=== PATIENT | male | born 1975 | race Caucasian/White ===

== ENCOUNTER → 2016-11-20 | Outpatient (CLI) | payer OTHER ==
[~2016-11-20] MED LIST: AMOXICILLIN500 MG PO; ASPIR LOW81 MG PO; DILTIAZEM HCL60 MG PO; ELIQUIS5 M1 PO; FAMOTIDINE20 MG PO; LISINOPRIL10 MG PO; LOPRESSOR25 MG PO; METFORMIN HCL500 MG PO; PROPAFENONE HC225 MG PO; TRICOR145 MG PO; ZOFRAN ODT4 MG SL
[2016-11-20 10:25] LABS: INTERNATIONAL NORM RATIO 1.4 (2.0-3.5); PROTHROMBIN TIME 15.6 SECONDS (9.0-12.4)
== END | disposition home or self-care (01) ==
LOC: LAB 09:34
PROVIDERS: Family Medicine
DX: I48.91 Unspecified atrial fibrillation (principal); Z79.899 Other long term (current) drug therapy

== ENCOUNTER → 2016-11-23 | Outpatient (CLI) | payer OTHER ==
[2016-11-23 19:26] LABS: INTERNATIONAL NORM RATIO 2.2 (2.0-3.5); PROTHROMBIN TIME 24.9 SECONDS (9.0-12.4)
== END | disposition home or self-care (01) ==
LOC: LAB 18:16
PROVIDERS: Family Medicine
DX: I48.91 Unspecified atrial fibrillation (principal)

== ENCOUNTER → 2017-01-09 | Outpatient (CLI) | payer OTHER ==
[2017-01-09 08:51] LABS: HEMATOCRIT 44.8 % (42.0-52.0); HEMOGLOBIN 15.2 g/dl (14.0-18.0); MEAN CELL VOLUME 85.8 fl (80.0-94.0); MEAN CORPUSCULAR HGB 29.1 pg (27.0-31.0); MEAN CORPUSCULAR HGB CONC 33.9 g/dl (33.0-37.0); MEAN PLATELET VOLUME 9.4 fl (9.6-12.3); RED BLOOD COUNT 5.22 10*6/uL (4.50-5.90); RED CELL DISTRI WIDTH 12.6 % (0-14.5); WHITE BLOOD COUNT 5.6 10*3/uL (4.8-10.8)
[2017-01-09 09:18] LABS: ALBUMIN 3.7 gm/dl (3.1-4.5); BILIRUBIN, TOTAL 0.3 mg/dl (0.2-1.0); BUN 16 mg/dl (7-24); CARBON DIOXIDE 28 mmol/L (21-32); CHLORIDE 105 mmol/L (98-107); EST GLOM FILT AFRICAN AMERICAN > 60 ml/min; GLUCOSE 95 mg/dL (65-99); POTASSIUM 3.6 mmol/L (3.5-5.1); SGOT/AST 20 IU/L (3-35); SGPT/ALT 30 U/L (12-78); SODIUM 140 mmol/L (136-145)
[2017-01-09 09:19] LABS: ALKALINE PHOSPHATASE 97 U/L (45-117)
[2017-01-09 09:37] LABS: INTERNATIONAL NORM RATIO 1.9 (2.0-3.5); PROTHROMBIN TIME 21.3 SECONDS (9.0-12.4)
== END | disposition home or self-care (01) ==
LOC: LAB 07:49
PROVIDERS: Family Medicine
DX: I48.91 Unspecified atrial fibrillation (principal); E55.9 Vitamin D deficiency, unspecified; F41.1 Generalized anxiety disorder; E74.00 Glycogen storage disease, unspecified

== ENCOUNTER 2018-07-06 22:03 | Emergency (ER) | payer OTHER ==
[~2018-07-06] VITALS: Ht 167.6 cm; Wt 82.6 kg
[2018-07-06 22:35] LABS: BILIRUBIN NEGATIVE (NEGATIVE); BLOOD 3+ (NEGATIVE); CLARITY SL CLOUDY (CLEAR); COLOR RED (YELLOW); GLUCOSE NEGATIVE (NEGATIVE); KETONE NEGATIVE (NEGATIVE); LEUKO ESTERASE TRACE (NEGATIVE); NITRITE NEGATIVE (NEGATIVE); PH 6.5 (5.0-9.0); SPECIFIC GRAVITY <= 1.005 (1.005-1.030); UROBILINOGEN 0.2 E.U./dl (0.2-1.0)
[2018-07-06 22:38] LABS: BASO # 0.1 10*3/uL (0.0-0.1); BASO % 1.1 % (0.0-1.0); EOS # 0.1 10*3/uL (0.0-0.4); EOS % 1.4 % (1.0-4.0); HEMATOCRIT 44.4 % (42.0-52.0); HEMOGLOBIN 15.6 g/dl (14.0-18.0); LYMPH # 2.5 10*3/uL (1.3-4.4); LYMPH % 36.4 % (27.0-41.0); MEAN CELL VOLUME 87.6 fl (80.0-94.0); MEAN CORPUSCULAR HGB 30.8 pg (27.0-31.0); MEAN CORPUSCULAR HGB CONC 35.1 g/dl (33.0-37.0); MEAN PLATELET VOLUME 8.8 fl (9.6-12.3); MONO # 0.6 10*3/uL (0.1-1.0); MONO % 8.9 % (3.0-9.0); NEUT # 3.6 10*3/uL (2.3-7.9); NEUT % 51.9 % (47.0-73.0); PLATELET COUNT AUTOMATED 288 10*3/uL (130-400); RED BLOOD COUNT 5.07 10*6/uL (4.50-5.90)
[2018-07-06 22:42] LABS: RBC TNTC rbc/hpf (0-2)
[2018-07-06 22:47] LABS: ALBUMIN 3.8 gm/dl (3.1-4.5); ALKALINE PHOSPHATASE 107 U/L (45-117); BUN 11 mg/dl (7-24); CHLORIDE 101 mmol/L (98-107); CREATININE 0.98 mg/dL (0.70-1.30); POTASSIUM 3.5 mmol/L (3.5-5.1); SGOT/AST 21 IU/L (3-35); SGPT/ALT 24 U/L (12-78); SODIUM 135 mmol/L (136-145); TOTAL PROTEIN 8.4 gm/dL (6.4-8.2)
== END 2018-07-06 23:50 | disposition home or self-care (01) ==
LOC: ED 22:03
PROVIDERS: Student in an Organized Health Care Education/Training Program
DX: R31.9 Hematuria, unspecified (principal); R10.9 Unspecified abdominal pain; I48.91 Unspecified atrial fibrillation; Z87.442 Personal history of urinary calculi; Z79.82 Long term (current) use of aspirin; Z79.899 Other long term (current) drug therapy

== ENCOUNTER 2019-03-13 18:47 | Inpatient (IN) | payer SELFPAY ==
[~2019-03-13] VITALS: Ht 167.6 cm; Wt 77.3 kg
[2019-03-13] VITALS (7 sets, daily range): BP systolic 122–143; BP diastolic 74–90
--- NOTE | ~2019-03-13 | EKG ---
[place], [place] ELECTROCARDIOGRAM REPORT NAME: SANA CHACON UNIT #: [id number] ROOM: 521 DOCTOR: TITO DRAFT REPORT BIRTHDATE: [birth year] [facility] Test Date: 2019-03-15 Test Time: 06:10:36 Pat Name: SANA CHACON Department: Room: 521 1 Gender: M Peanut Shaker: Stephie Plunkett : 1975 Requested By: ABRAM AVILES Order Number: [id number] Reading MD: Abram Aviles MD Measurements Intervals [place] Rate: 67 P: 36 ID: 166 QRS: 5 QRSD: 84 T: 8 QT: 382 QTc: 404 Interpretive Statements Sinus arrhythmia Baseline wander in lead(s) II,III,aVF,V4 No previous ECG available for comparison Electronically Signed On 03-15-2019 5:59:56 PDT by Abram Aviles MD CM:EKGRPT:ELECTROCARDIOGRAM REPORT [id number] ABRAM AVILES MD EPIPHANY DRAFT REPORT ABRAM AVILES MD
--- NOTE | ~2019-03-13 | EKG ---
[place], [place] ELECTROCARDIOGRAM REPORT NAME: SANA CHACON UNIT #: [id number] ROOM: 521 DOCTOR: TITO DRAFT REPORT BIRTHDATE: [birth year] [facility] Test Date: 2019-03-14 Test Time: 01:15:57 Pat Name: SANA CHACON Department: Room: 521 Gender: M Grab Jack Man: Bk Rapp : 1975 Requested By: JI HUERTA Order Number: [id number] Reading MD: Abram Barfield MD Measurements Intervals [place] Rate: 103 P: [place]: QRS: 2 QRSD: 78 T: 10 QT: 334 QTc: 437 Interpretive Statements Atrial fibrillation Electronically Signed On 03-15-2019 5:56:57 PDT by Abram Barfield MD CM:EKGRPT:ELECTROCARDIOGRAM REPORT [id number] JI MATHUR DRAFT REPORT JI HUERTA DO
--- NOTE | ~2019-03-13 | EKG ---
[place], [place] ELECTROCARDIOGRAM REPORT NAME: SANA CHACON UNIT #: [id number] ROOM: 521 DOCTOR: TITO DRAFT REPORT BIRTHDATE: [birth year] [facility] Test Date: 2019-03-13 Test Time: 19:40:04 Pat Name: SANA CHACON Department: Room: 521 Gender: M Development System Efficiency Manager: Nury Freedman : 1975 Requested By: JI HUERTA Order Number: [id number] Reading MD: Abram Barfield MD Measurements Intervals [place] Rate: 136 P: [place]: QRS: 9 QRSD: 81 T: 4 QT: 288 QTc: 434 Interpretive Statements Atrial fibrillation Rapid ventricular complexes Electronically Signed On 03-15-2019 5:53:05 PDT by Abram Barfield MD CM:EKGRPT:ELECTROCARDIOGRAM REPORT [id number] JI MATHUR DRAFT REPORT JI HUERTA DO
--- NOTE | ~2019-03-13 | EKG ---
[place], [place] ELECTROCARDIOGRAM REPORT NAME: SANA CHACON UNIT #: [id number] ROOM: 521 DOCTOR: TITO DRAFT REPORT BIRTHDATE: [birth year] [facility] Test Date: 2019-03-13 Test Time: 22:46:33 Pat Name: SANA CHACON Department: Room: 521 Gender: M Shutdown Coordinator: Deidra Saldana : 1975 Requested By: JI HUERTA Order Number: [id number] Reading MD: Abram Barfield MD Measurements Intervals [place] Rate: 123 P: [place]: QRS: 11 QRSD: 76 T: 7 QT: 306 QTc: 438 Interpretive Statements Atrial fibrillation Electronically Signed On 03-15-2019 5:53:46 PDT by Abram Barfield MD CM:EKGRPT:ELECTROCARDIOGRAM REPORT [id number] JI MATHUR DRAFT REPORT JI HURETA DO
--- NOTE | ~2019-03-13 | WRIGHTHP ---
[place], [place] PATIENT HISTORY AND PHYSICAL EXAM NAME: SANA CHACON [facility] #: [id number] UNIT #: [id number] ROOM: 521 DOCTOR: WHITNEY ALDANA MD BIRTHDATE: [birth year] DOS: 03/13/2019 HISTORY OF PRESENT ILLNESS: The patient is a 43-year-old gentleman with a past medical history of: 1. Paroxysmal atrial fibrillation with rapid ventricular response. 2. Benign essential hypertension. The patient presented to the Emergency Department at [facility] with palpitations going on for about 20 minutes and he also felt short of breath. The patient was found to be in atrial fibrillation with rapid ventricular response with a heart rate of 116 beats per minute recorded, going up to 138 beats per minute. The patient was started on IV Cardizem and admitted to a monitored bed and he is starting to feel better. Cardiology has been consulted. No chest pain. No other GI or urinary symptoms. REVIEW OF SYSTEMS: CARDIOVASCULAR SYSTEMS: Palpitations. RESPIRATORY: Increasing shortness of breath. GASTROINTESTINAL: No nausea, vomiting, diarrhea, or constipation. ALLERGIES: No known drug allergies. HOME MEDICATIONS: Cardizem, metoprolol, Coumadin, and lorazepam. PHYSICAL EXAMINATION: GENERAL: Alert and oriented x 3, in no visible distress. HEENT AND NECK: Extraocular movements are intact. Sclerae are anicteric. Oral mucosa is moist and clean. No obvious facial weakness. Neck is supple without any lymphadenopathy. No thyromegaly. No JVD. No carotid arterial bruits. LUNGS: Clear to auscultation. No wheezing. No rhonchi. CARDIOVASCULAR SYSTEM: Heart rate is regular in rate and rhythm. S1 and S2 normally audible. No significant murmur or any other abnormal cardiac sounds. ABDOMEN: Soft, nontender. No obvious organomegaly. Bowel sounds are present. No obvious herniation. EXTREMITIES: Without significant cyanosis or edema. Warm to touch. CENTRAL NERVOUS SYSTEM: Alert and oriented x 3. Cranial nerves II-XII are intact. Speech is normal. The patient is able to move all extremities. Normal muscle strength. Deep tendon reflexes are equal on both sides. Plantars were downgoing. LABORATORY DATA: Cardiac enzymes negative. Chest x-ray showing no acute abnormality. Potassium level of 3.4. IMPRESSION: 1. The patient with acute atrial fibrillation with a history of paroxysmal atrial fibrillation with rapid ventricular response up to 140 beats per minute and shortness of breath indicating acute congestive heart failure related to his tachycardia, is feeling much better now with IV Cardizem and has reverted back [place], [place] PATIENT HISTORY AND PHYSICAL EXAM NAME: SANA CHACON UNIT #: [id number] ROOM: 521 DOCTOR: WHITNEY ALDANA MD BIRTHDATE: [birth year] to normal sinus rhythm. Cardiology has been consulted. The patient already anticoagulated with Coumadin and INR was therapeutic at 2. Coumadin has been continued. 2. Generalized anxiety disorder, treated with lorazepam as needed. 3. Benign essential hypertension, treated and controlled. Blood pressures are staying normal on diltiazem and metoprolol that he was taking at home. WHITNEY ALDANA MD CM:HISPHYS:PATIENT HISTORY AND PHYSICAL EXAMINATION [id number] WHITNEY ALDANA MD 03/14/19 1112 interface
--- NOTE | ~2019-03-13 | DS ---
[place], [place] DISCHARGE SUMMARY NAME: SANA CHACON [facility] #: [id number] UNIT #: [id number] ROOM: 521 DOCTOR: WHITNEY ALDANA MD BIRTHDATE: [birth year] DOS: 03/15/2019 DISCHARGE DIAGNOSES: 1. Paroxysmal atrial fibrillation with rapid ventricular response. 2. Benign essential hypertension. HOSPITAL COURSE: The patient presented to the Emergency Department with palpitations for 20 minutes and he was found to be in rapid atrial fibrillation with heart rate going up to 140 beats per minute. The patient was started on IV Cardizem and admitted and he converted back to normal sinus rhythm. The patient back on oral Cardizem and metoprolol and remains in sinus rhythm and he will follow up with his lasting machine operator and Dr. Mikey Land as an outpatient. He is asymptomatic. Generalized anxiety disorder, treated and controlled with lorazepam as needed. Benign essential hypertension. Blood pressure is staying normal with treatment. LABORATORY DATA: Cardiac enzymes are negative. Chest x-ray without any acute abnormality. Cardiology consult was obtained with Dr. Barfield who evaluated the patient. DISCHARGE MANAGEMENT: Coumadin 0.5 mg on Saturdays and 1 mg on other days daily, diltiazem CD 120 mg a day, Pepcid 20 mg a day. Follow up with PCP and with Cardiology. WHITNEY ALDANA MD CM:DISCHARG 2102 WHITNEY ALDANA MD 03/16/19 0116 interface
[2019-03-13 19:31] LABS: BASO # 0.1 10*3/uL (0.0-0.1); BASO % 0.8 % (0.0-1.0); EOS # 0.2 10*3/uL (0.0-0.4); EOS % 2.3 % (1.0-4.0); HEMATOCRIT 47.3 % (42.0-52.0); HEMOGLOBIN 15.8 g/dl (14.0-18.0); LYMPH # 1.1 10*3/uL (1.3-4.4); LYMPH % 14.3 % (27.0-41.0); MEAN CORPUSCULAR HGB 30.4 pg (27.0-31.0); MEAN CORPUSCULAR HGB CONC 33.4 g/dl (33.0-37.0); MEAN PLATELET VOLUME 9.1 fl (9.6-12.3); MONO # 0.7 10*3/uL (0.1-1.0); MONO % 8.7 % (3.0-9.0); NEUT # 5.8 10*3/uL (2.3-7.9); NEUT % 73.6 % (47.0-73.0); PLATELET COUNT AUTOMATED 282 10*3/uL (130-400); RED CELL DISTRI WIDTH 11.6 % (0-14.5); WHITE BLOOD COUNT 7.9 10*3/uL (4.8-10.8)
[2019-03-13 19:47] LABS: ALBUMIN 3.9 gm/dl (3.1-4.5); ALKALINE PHOSPHATASE 107 U/L (45-117); BUN 19 mg/dl (7-24); CHLORIDE 107 mmol/L (98-107); POTASSIUM 3.4 mmol/L (3.5-5.1); SGOT/AST 16 IU/L (3-35); SGPT/ALT 33 U/L (12-78); SODIUM 141 mmol/L (136-145); TOTAL PROTEIN 8.3 gm/dL (6.4-8.2)
[2019-03-13 19:48] LABS: ACT PARTIAL THROMBO TIME 33.9 SECONDS (20.0-32.1)
[2019-03-13 20:01] LABS: TROPONIN I < 0.015 ng/ml (<0.045)
--- NOTE | 2019-03-13 22:15 | NUR ---
A 43, admitted to 5E, under the services of Dr. JOVAN ARGUETA,WHITNEY Fong with a diagnosis of ATRIAL FIBRILLATION WITH RVR. Chief complaint is TACHYCARDIA/PALPITATIONS. Patient arrived via stretcher from ER. Monitor applied. Initial assessment completed. Vital signs taken and recorded. DR. JOVAN ARGUETA,WHITNEY Fong notified of admission to the unit. Orders received. See assessment for past medical history, medications and allergies. Patient and/or family oriented to unit. [facility] visitation policy reviewed. Clothing/patient valuable form completed. MARKEL TOBIN
[2019-03-13] MEDS ORDERED: COUMADIN1 M1 PO ×2 (22:24→22:25)
[2019-03-13] MEDS ORDERED: CARDIZEM CD120 M2 PO (22:26)
--- NOTE | 2019-03-13 22:55 | NUR ---
PT'S CARDIZEM GTT INCREASED TO 10 MG/HR PER TITRATE ORDER HR SITTING IN 110S-130S PER CM, AND HIGH 150S. WILL MONITOR. Q2H BP CHECKS TO BE INITIATED.
--- NOTE | 2019-03-13 22:58 | NUR ---
ATTEMPTED TO CALL FOR ADMISSION ORDERS. NO RESPONSE. WILL ATTEMPT AGAIN.
--- NOTE | 2019-03-13 23:08 | NUR ---
ORDERS RECEIVED FROM . DISCUSSED CURRENT VITALS, CARDIZEM GTT TITRATED TO 10 MG/HR, HOME MEDICATIONS, PERTINENT LAB RESULTS. INSTRUCTED TO ORDER HOME WARFARIN & FAMOTIDINE. HOLD HOME METOPROLOL, LISINOPRIL, & DILTIAZEM. ALSO INSTRUCTED TO CONSULT FOR AFIB W/RVR & TO GIVE PT A REGULAR DIET. NO AM LABS NEEDED PER .
--- NOTE | 2019-03-13 23:16 | NUR ---
'S ANSWERING SERVICE CALLED AT THIS TIME REGARDING CONSULT. CONSULT INFORMATION/CALL BACK NUMBER LEFT WITH SHUTTLE VAN DRIVER.
[2019-03-14] VITALS (9 sets, daily range): BP systolic 102–134; BP diastolic 68–78
--- NOTE | 2019-03-14 03:17 | NUR ---
HR SITTING 70S-80S & HOLDING. CURRENTLY IN A FLUTTER. CARIZEM GTT TITRATED DOWN FROM 10 ML/HR TO 5 ML/HR AT THIS TIME. WILL MONITOR. CALL LIGHT IN REACH.
--- NOTE | 2019-03-14 05:33 | NUR ---
PT'S HR 70S. STILL IN AFIB/AFLUTTER. CARDIZEM BAG PULLED RETURNED TO PYXIS, UNMIXED.
--- NOTE | 2019-03-14 06:24 | NUR ---
'S ANSWERING SERVICE CALLED AT THIS TIME IN ORDER TO CLARIFY WHETHER CARDIZEM GTT SHOULD REMAIN RUNNING OR BE D/Gilbert. MESSAGE/CALL BACK NUMBER LEFT WITH TREASURY SPECIALIST. CALL BACK REQUESTED.
--- NOTE | 2019-03-14 06:31 | NUR ---
CALLED BACK AT THIS TIME. DISCUSSED CONSULT, ADMITTING DX, MEDICATIONS/CARDIZEM GTT, AND CURRENT VITALS. INSTRUCTED TO DECREASE GTT TO 2.5 MG/HR AND HE WILL SEE PT IN THE AM.
--- NOTE | 2019-03-14 06:33 | NUR ---
CARDIZEM GTT DECREASED TO 2.5 MG/HR PER 'S INSTRUCTION.
--- NOTE | 2019-03-14 12:27 | NUR ---
Film Rental Clerk in to talk to patient. Patient states lives at HOME with . There are 4 steps in the home. Physician: TRISTIN Pharmacy: [facility] Home health services: NONE Patient's level of ADLs: INDEPENDENT Patient has working utilities: YES DME: NONE Follow-up physician's appointment after d/c: WILL BE MADE BY HOSPITALIST NURSE DIRECTOR ON DISCHARGE Does patient want to access PORTAL?: NO Discharge plan PT LIVES AT HOME WITH HIS AND IS INDEPENDENT IN CARE. PT STATES HE WORKS AND IS INDEPENDENT IN HIS CARE. DENIES ANY NEEDS ON DISCHARGE. WILL CONTINUE TO FOLLOW. STATES HE WILL HAVE A RIDE HOME.. SRIDHAR PAGAN
--- NOTE | 2019-03-14 19:41 | NUR ---
CALLED PHARMACY TO CHANGE DIRECTION ON COUMADIN SO THAT PATIENT RECEIVES 1 MG WEDNESDAY-WEDNESDAY AND 0.5 MG ON WEDNESDAY.
[2019-03-15] VITALS: BP 130/70
--- NOTE | 2019-03-15 01:27 | NUR ---
PT ASLEEP IN BED. DENIES ANY NEEDS AT THIS TIME.
[2019-03-15 07:54] VITALS: BP 122/60
--- NOTE | 2019-03-15 08:45 | NUR ---
PT AWAKE, ALERT, & ORIENTED. DENIES ANY COMPLAINTS AT THIS TIME. HR STILL IN NSR 70'S AT THIS TIME. PT DENIES ANY CHEST PAIN OR PALPITATIONS. CALL LIGHT IS WITHIN REACH.
[2019-03-15 12:00] VITALS: BP 126/70
--- NOTE | 2019-03-15 12:37 | NUR ---
PT PLANS TO GO HOME WHEN MEDICALLY STABLE. STATE HE HAS NO NEEDS. WILL CONTINUE TO FOLLOW.
[2019-03-15 16:00] VITALS: BP 118/78
[2019-03-15 20:00] VITALS: BP 141/88
--- NOTE | 2019-03-15 20:15 | NUR ---
RESTING IN BED WIHTOUT C/O'S. ALERT AND PLEASANT. NO DISTRESS NOTED. WAITING ON DR. ALDANA TO ROUND. PT WANTING TO BE DISCHARGED. ONE HEP LOCK REMOVED. JAIME HEP LCK INTACT.
--- NOTE | 2019-03-15 20:47 | NUR ---
DR. ALDANA HERE TO SEE PT. PT TO BE DISCHARGED.
--- NOTE | 2019-03-15 21:00 | NUR ---
2ND HEP LOCK AND MONITOR REMOVED. DISCHARGE INSTRUCTIONS GIVEN AND PROPER PAPERS SIGNED. PT DISCHARGED TO HOME, VIA WC, WITH BELONGINGS. CONDITION STABLE.
== END 2019-03-15 21:00 | disposition home or self-care (01) | DRG 310 ==
LOC: ED 18:47 → 5E 21:21 → EDHOLD 21:21 → 5E 21:58
PROVIDERS: Student in an Organized Health Care Education/Training Program; ADMIT Internal Medicine
DX: I48.0 Paroxysmal atrial fibrillation (principal); I10 Essential (primary) hypertension; F41.1 Generalized anxiety disorder; F17.220 Nicotine dependence, chewing tobacco, uncomplicated; I35.1 Nonrheumatic aortic (valve) insufficiency; Z79.01 Long term (current) use of anticoagulants; Z79.899 Other long term (current) drug therapy; Z79.82 Long term (current) use of aspirin; Z82.49 Family history of ischemic heart disease and other diseases of the circulatory system; Z82.5 Family history of asthma and other chronic lower respiratory diseases; Z84.1 Family history of disorders of kidney and ureter

== ENCOUNTER 2019-12-08 08:02 | Emergency (ER) | payer SELFPAY ==
[~2019-12-08] VITALS: Ht 167.6 cm; Wt 82.6 kg
[~2019-12-08 08:02] MED LIST changes: +CARDIZEM CD120 M2 PO; +COUMADIN1 M1 PO
[2019-12-08 08:27] LABS: BASO # 0.1 10*3/uL (0.0-0.1); BASO % 1.9 % (0.0-1.0); EOS # 0.1 10*3/uL (0.0-0.4); EOS % 1.6 % (1.0-4.0); HEMATOCRIT 45.6 % (42.0-52.0); HEMOGLOBIN 15.7 g/dl (14.0-18.0); LYMPH # 1.5 10*3/uL (1.3-4.4); LYMPH % 25.7 % (27.0-41.0); MEAN CORPUSCULAR HGB 31.3 pg (27.0-31.0); MEAN CORPUSCULAR HGB CONC 34.4 g/dl (33.0-37.0); MEAN PLATELET VOLUME 8.8 fl (9.6-12.3); MONO # 0.6 10*3/uL (0.1-1.0); MONO % 10.8 % (3.0-9.0); NEUT # 3.4 10*3/uL (2.3-7.9); NEUT % 59.8 % (47.0-73.0); PLATELET COUNT AUTOMATED 288 10*3/uL (130-400); RED BLOOD COUNT 5.01 10*6/uL (4.50-5.90); RED CELL DISTRI WIDTH 12.5 % (0-14.5); WHITE BLOOD COUNT 5.7 10*3/uL (4.8-10.8)
[2019-12-08 08:40] LABS: ALBUMIN 3.7 gm/dl (3.1-4.5); ALKALINE PHOSPHATASE 98 U/L (45-117); BUN 16 mg/dl (7-24); CHLORIDE 106 mmol/L (98-107); CREATININE 1.12 mg/dL (0.70-1.30); POTASSIUM 3.5 mmol/L (3.5-5.1); SGOT/AST 20 IU/L (3-35); SGPT/ALT 28 U/L (12-78); SODIUM 140 mmol/L (136-145); TOTAL PROTEIN 8.3 gm/dL (6.4-8.2)
[2019-12-08 08:42] LABS: INTERNATIONAL NORM RATIO 3.3 (2.0-3.5)
[2019-12-08 08:51] LABS: TROPONIN I < 0.015 ng/ml (<0.045)
[2019-12-08] MEDS ORDERED: ATIVAN1 MG PO (18:26)
== END 2019-12-08 18:27 | disposition home or self-care (01) ==
LOC: ED 08:02
PROVIDERS: Emergency Medicine
DX: I48.91 Unspecified atrial fibrillation (principal); I10 Essential (primary) hypertension; F41.9 Anxiety disorder, unspecified; K21.9 Gastro-esophageal reflux disease without esophagitis; E78.00 Pure hypercholesterolemia, unspecified; Z79.899 Other long term (current) drug therapy; Z79.01 Long term (current) use of anticoagulants

== ENCOUNTER 2020-01-29 18:00 | Inpatient (IN) | payer OTHER ==
[~2020-01-29] VITALS: Ht 167.6 cm; Wt 75.7 kg
[~2020-01-29 18:00] MED LIST changes: -CARTIA XT120 MG PO; -LISINOPRIL10 M1 PO; -WARFARIN SOD5 MG PO; -XARE15TA PO
[2020-01-29 18:36] VITALS: BP 127/76
[2020-01-29 18:58] LABS: BASO # 0.1 10*3/uL (0.0-0.1); BASO % 1.6 % (0.0-1.0); EOS # 0.3 10*3/uL (0.0-0.4); EOS % 3.3 % (1.0-4.0); HEMATOCRIT 34.5 % (42.0-52.0); LYMPH # 2.1 10*3/uL (1.3-4.4); LYMPH % 26.5 % (27.0-41.0); MEAN CELL VOLUME 88.2 fl (80.0-94.0); MEAN CORPUSCULAR HGB 30.9 pg (27.0-31.0); MEAN CORPUSCULAR HGB CONC 35.1 g/dl (33.0-37.0); MEAN PLATELET VOLUME 8.5 fl (9.6-12.3); MONO # 0.9 10*3/uL (0.1-1.0); MONO % 11.4 % (3.0-9.0); NEUT # 4.5 10*3/uL (2.3-7.9); NEUT % 56.9 % (47.0-73.0); PLATELET COUNT AUTOMATED 228 10*3/uL (130-400); RED BLOOD COUNT 3.91 10*6/uL (4.50-5.90); RED CELL DISTRI WIDTH 11.9 % (0-14.5)
[2020-01-29 19:26] LABS: ACT PARTIAL THROMBO TIME 73.6 SECONDS (20.0-32.1)
[2020-01-29 19:27] LABS: INTERNATIONAL NORM RATIO > 9.3 (2.0-3.5)
[2020-01-29 20:21] LABS: ALBUMIN 3.6 gm/dl (3.1-4.5); ALKALINE PHOSPHATASE 97 U/L (45-117); BUN 7 mg/dl (7-24); CHLORIDE 95 mmol/L (98-107); CREATININE 0.85 mg/dL (0.70-1.30); POTASSIUM 3.4 mmol/L (3.5-5.1); SGOT/AST 24 IU/L (3-35); SGPT/ALT 25 U/L (12-78); SODIUM 128 mmol/L (136-145); TOTAL PROTEIN 7.5 gm/dL (6.4-8.2)
--- NOTE | 2020-01-29 21:02 | NUR ---
PT RESTING IN BED WITH S/O AT BEDSIDE. APPEARED ANXIOUS. ATIVAN WAS GIVEN
--- NOTE | 2020-01-29 21:30 | NUR ---
PT STATES ATIVAN CALMED HIS ANXIETY. RESTING IN BED IN NO ACUTE DISTRESS. NO NEEDS AT THIS TIME.
[2020-01-29 22:11] VITALS: BP 121/68
[2020-01-29 22:30] VITALS: BP 129/67
--- NOTE | 2020-01-29 22:30 | NUR ---
A 44, admitted to , under the services of CODEY Lindquist MD with a diagnosis of ALCOHOL ABUSE, SUPRATHERAPEUTIC INR. Chief complaint is ABNORMAL LABS. Patient arrived via wheel chair from ER. Monitor applied. Initial assessment completed. Vital signs taken and recorded. CODEY LINDQUIST MD notified of admission to the unit. Orders received. See assessment for past medical history, medications and allergies. Patient and/or family oriented to unit. [facility] visitation policy reviewed. Clothing/patient valuable form completed. ITALO STALLINGS
[2020-01-29] MEDS ORDERED: CARTIA XT120 MG PO (23:01)
[2020-01-29] MEDS ORDERED: WARFARIN SOD5 MG PO (23:04)
[2020-01-29] MEDS ORDERED: LISINOPRIL10 M1 PO (23:05)
--- NOTE | 2020-01-29 23:11 | NUR ---
DR. ARENAS NOTIFIED OF COMPLETE HOME MEDICATIONS. NO ORDERS WITH THOSE AT THIS TIME. NOTIFIED OF BRUISE FROM RIGHT SIDE WRAPPED TO ABDOMEN, CT ORDERED.
--- NOTE | 2020-01-29 23:15 | NUR ---
DR. ARENAS ALSO NOTIFIED PT STATING THAT URINE IS BLOODY R/T KIDNEY STONES. NO ORDERS AT THIS TIME.
--- NOTE | 2020-01-29 23:40 | NUR ---
PT TO CT
[2020-01-30] VITALS (14 sets, daily range): BP systolic 130–144; BP diastolic 64–87
--- NOTE | 2020-01-30 01:41 | NUR ---
PT WATCHING TV AT THIS TIME.
--- NOTE | 2020-01-30 02:30 | NUR ---
PT SLEEPING AT THIS TIME. CALL LIGHT IN REACH
--- NOTE | 2020-01-30 03:30 | NUR ---
PT SLEEPING AT THIS TIME, RESPIRATIONS EASY AND UNLABORED, CALL LIGHT IN REACH
--- NOTE | 2020-01-30 07:56 | NUR ---
MEDICATED WITH ATIVAN PER ORDER AND REQUEST.
--- NOTE | 2020-01-30 08:00 | NUR ---
Net Wpf Developer in to talk to patient. Patient states lives at home with his . There are 4 outside steps in the home. Physician: Dr. Mikey Land Pharmacy: [facility] Home health services: none Patient's level of ADLs: INDEPENDENT Patient has working utilities: yes DME: none Follow-up physician's appointment after d/c: he prefers to make his own follow up appt after discharge Does patient want to access PORTAL?: no Discharge plan discussed with patient. He lives at home with his . He is independent in his ADLs and ambulation. Discussed home health care services and he denies any home needs at this time. When medically stable he will be discharged to home. He states his will provide transportation on discharge. JOHN ESTRELLA
[2020-01-30 08:02] LABS: BASO # 0.1 10*3/uL (0.0-0.1); BASO % 1.7 % (0.0-1.0); EOS # 0.3 10*3/uL (0.0-0.4); EOS % 5.4 % (1.0-4.0); HEMATOCRIT 35.4 % (42.0-52.0); LYMPH # 1.7 10*3/uL (1.3-4.4); LYMPH % 27.9 % (27.0-41.0); MEAN CELL VOLUME 90.3 fl (80.0-94.0); MEAN CORPUSCULAR HGB 30.6 pg (27.0-31.0); MEAN CORPUSCULAR HGB CONC 33.9 g/dl (33.0-37.0); MEAN PLATELET VOLUME 9.1 fl (9.6-12.3); MONO # 0.9 10*3/uL (0.1-1.0); MONO % 14.4 % (3.0-9.0); NEUT % 50.3 % (47.0-73.0); PLATELET COUNT AUTOMATED 231 10*3/uL (130-400); RED BLOOD COUNT 3.92 10*6/uL (4.50-5.90)
--- NOTE | 2020-01-30 08:45 | NUR ---
SCOTT HELPED A LITTLE. DR. ARENAS HAS ROUNDED.
[2020-01-30 08:51] LABS: INTERNATIONAL NORM RATIO 8.4 (2.0-3.5)
--- NOTE | 2020-01-30 11:20 | NUR ---
VITALS TAKEN AWAITING FFP.
--- NOTE | 2020-01-30 11:43 | NUR ---
FFP STARTED ON PATIENT.
--- NOTE | 2020-01-30 12:30 | NUR ---
ATTEMPTED TO PUT I/O IN TAR AND CANNOT. INPUT LISTED IN REGULAR I/O. LEFT MESSAGE FOR ROGELIO KAUR.
--- NOTE | 2020-01-30 19:00 | NUR ---
ASSUMED CARE FOR THIS PT AT THIS TIME. PT AWAKE IN BED WATCHING TV. NO C/O VOICED. CALL LIGHT IN REACH.
--- NOTE | 2020-01-30 20:51 | NUR ---
PT MEDICATED W/IVP ATIVAN PER REQUEST FOR C/O ANXIETY/TREMORS. CALL LIGHT IN REACH.
--- NOTE | 2020-01-30 21:50 | NUR ---
PT RESTING QUIETLY IN BED. NO S/S OF ANXIETY/DISTRESS NOTED.
[2020-01-31] VITALS: BP 111/68
[2020-01-31 06:24] LABS: INTERNATIONAL NORM RATIO 1.3 (2.0-3.5)
--- NOTE | 2020-01-31 06:39 | NUR ---
PT AWAKE IN BED WATCHING TV. NO C/O VOICED AT PRESENT TIME.
--- NOTE | 2020-01-31 06:42 | NUR ---
PT STATES HE TAKES 20MG OF PEPCID BID. HOME MED LIST UPDATED. WILL NOTIFY
[2020-01-31] MEDS ORDERED: XARE15TA PO (08:42)
--- NOTE | 2020-01-31 09:03 | NUR ---
Discharge instructions reviewed with patient/family. Patient receptive and verbalizes understanding. Follow-up care arranged. Written instructions given to patient/family. MERI MCKNIGHT
== END 2020-01-31 09:03 | disposition home or self-care (01) | DRG 468 ==
LOC: ED 18:00 → 5E 20:12 → EDHOLD 20:12 → 5E 21:40
PROVIDERS: Physician Assistant; ADMIT Internal Medicine
DX: R31.9 Hematuria, unspecified (principal); I48.21 Permanent atrial fibrillation; I48.0 Paroxysmal atrial fibrillation; I10 Essential (primary) hypertension; N20.0 Calculus of kidney; F10.20 Alcohol dependence, uncomplicated; Z79.01 Long term (current) use of anticoagulants; E87.1 Hypo-osmolality and hyponatremia

== ENCOUNTER → 2020-01-29 | Outpatient (CLI) | payer OTHER ==
[~2020-01-29] MED LIST changes: +ACID REDUCER10 MG PO; +ATIVAN1 MG PO; +CARTIA XT120 MG PO; -FAMOTIDINE20 MG PO; +LISINOPRIL10 M1 PO; +WARFARIN SOD5 MG PO; +XARE15TA PO
[2020-01-29 16:02] LABS: HEMATOCRIT 36.5 % (42.0-52.0); MEAN CELL VOLUME 89.5 fl (80.0-94.0); MEAN CORPUSCULAR HGB 30.9 pg (27.0-31.0); MEAN CORPUSCULAR HGB CONC 34.5 g/dl (33.0-37.0); MEAN PLATELET VOLUME 8.9 fl (9.6-12.3); RED BLOOD COUNT 4.08 10*6/uL (4.50-5.90); RED CELL DISTRI WIDTH 11.9 % (0-14.5); WHITE BLOOD COUNT 7.5 10*3/uL (4.8-10.8)
[2020-01-29 16:21] LABS: ALBUMIN 3.8 gm/dl (3.1-4.5); ALKALINE PHOSPHATASE 108 U/L (45-117); BUN 8 mg/dl (7-24); CHLORIDE 97 mmol/L (98-107); CHOLESTEROL 261 mg/dL (<200); HDL CHOLESTEROL 57 mg/dl (40-60); LDL CHOLESTEROL 169 mg/dL (9-159); POTASSIUM 3.9 mmol/L (3.5-5.1); SGOT/AST 24 IU/L (3-35); SGPT/ALT 28 U/L (12-78); SODIUM 131 mmol/L (136-145); TOTAL PROTEIN 7.8 gm/dL (6.4-8.2); TRIGLYCERIDES 175 mg/dl (<150); VLDL CHOLESTEROL 35 mg/dL (6-40)
[2020-01-29 16:37] LABS: INTERNATIONAL NORM RATIO > 9.3 (2.0-3.5)
== END | disposition home or self-care (01) ==
LOC: LAB 14:08
PROVIDERS: Family Medicine
DX: E55.9 Vitamin D deficiency, unspecified (principal); E78.00 Pure hypercholesterolemia, unspecified; I48.91 Unspecified atrial fibrillation

== ENCOUNTER → 2020-03-11 | Outpatient (CLI) | payer OTHER ==
[~2020-03-11] MED LIST changes: +CARTIA XT120 MG PO; +LISINOPRIL10 M1 PO; +WARFARIN SOD5 MG PO; +XARE15TA PO
[2020-03-11 14:29] LABS: INTERNATIONAL NORM RATIO 1.2 (2.0-3.5)
== END | disposition home or self-care (01) ==
LOC: LAB 13:34
PROVIDERS: Family Medicine
DX: I48.91 Unspecified atrial fibrillation (principal); Z79.01 Long term (current) use of anticoagulants

== ENCOUNTER → 2020-03-19 | Outpatient (CLI) | payer OTHER ==
[2020-03-19 13:40] LABS: INTERNATIONAL NORM RATIO 2.3 (2.0-3.5)
== END | disposition home or self-care (01) ==
LOC: LAB 12:49
PROVIDERS: Family Medicine
DX: I48.91 Unspecified atrial fibrillation (principal); Z79.01 Long term (current) use of anticoagulants

== ENCOUNTER → 2020-04-30 | Outpatient (CLI) | payer OTHER ==
[~2020-04-30] MED LIST changes: +ATIVAN0.5 MG PO; +Coumadin5 MG PO; +DIAZEPAM5 MG PO; +PROTONIX40 MG PO
[2020-04-30 13:08] LABS: HEMATOCRIT 38.6 % (42.0-52.0); MEAN CELL VOLUME 89.4 fl (80.0-94.0); MEAN CORPUSCULAR HGB 29.6 pg (27.0-31.0); MEAN CORPUSCULAR HGB CONC 33.2 g/dl (33.0-37.0); MEAN PLATELET VOLUME 8.9 fl (9.6-12.3); RED BLOOD COUNT 4.32 10*6/uL (4.50-5.90); RED CELL DISTRI WIDTH 12.2 % (0-14.5); WHITE BLOOD COUNT 5.6 10*3/uL (4.8-10.8)
[2020-04-30 13:23] LABS: ALBUMIN 3.5 gm/dl (3.1-4.5); ALKALINE PHOSPHATASE 85 U/L (45-117); BUN 12 mg/dl (7-24); CHLORIDE 108 mmol/L (98-107); CREATININE 0.94 mg/dL (0.70-1.30); POTASSIUM 3.2 mmol/L (3.5-5.1); SGOT/AST 17 IU/L (3-35); SGPT/ALT 29 U/L (12-78); SODIUM 141 mmol/L (136-145); TOTAL PROTEIN 7.9 gm/dL (6.4-8.2)
== END | disposition home or self-care (01) ==
LOC: LAB 12:52
PROVIDERS: ATTEND Family Medicine
DX: K85.90 Acute pancreatitis without necrosis or infection, unspecified (principal)

== ENCOUNTER → 2020-05-08 | Outpatient (CLI) | payer OTHER ==
[2020-05-08 13:43] LABS: LIPASE 274 U/L (73-393)
== END | disposition home or self-care (01) ==
LOC: LAB 12:45
PROVIDERS: ATTEND Family Medicine
DX: K85.90 Acute pancreatitis without necrosis or infection, unspecified (principal)

== ENCOUNTER → 2020-05-29 | Outpatient (CLI) | payer OTHER ==
[2020-05-29 10:13] LABS: INTERNATIONAL NORM RATIO 2.6 (2.0-3.5)
== END | disposition home or self-care (01) ==
LOC: LAB 09:08
PROVIDERS: ATTEND Family Medicine
DX: I48.91 Unspecified atrial fibrillation (principal)

== ENCOUNTER → 2021-06-30 | Outpatient (CLI) | payer OTHER | END | disposition home or self-care (01) | LOC: RAD 10:51 | PROVIDERS: ATTEND Family Medicine | DX: J18.9 Pneumonia, unspecified organism (principal); R05.9 Cough, unspecified ==